=== PATIENT | male | born 1985 | race African-American/Black ===

== ENCOUNTER 2016-06-20 22:29 | Emergency (ER) | payer BC ==
[~2016-06-20] VITALS: Ht 180.3 cm; Wt 101.8 kg
[2016-06-20 23:24] LABS: HEMATOCRIT 47.4 % (38.0-50.0); MCH 27.4 PG (29.0-34.0); MCHC 32.3 G/DL (30.0-36.0); MCV 84.8 FL (86-99); MEAN PLAT.VOLUME 10.4 uM^3 (9.0-12.4); PLATELET COUNT 194 K/uL (156-360); RBC DIS.WIDTH-CV 13.1 % (11.8-14.6); RBC DIS.WIDTH-SD 40.5 % (39-53); RED BLOOD COUNT 5.59 M/uL (4.00-5.50); WHITE BLOOD COUNT 5.8 K/uL (4.1-10.2)
[2016-06-20 23:33] LABS: CHLORIDE 108 mEq/L (99-109); POTASSIUM 3.9 mEq/L (3.7-5.4); SODIUM 141 mEq/L (136-147)
[2016-06-20 23:35] LABS: GLUCOSE 102 mg/dL (70-99)
[2016-06-20 23:36] LABS: ANION GAP 9 MEQ/L (2-14)
[2016-06-20 23:37] LABS: TOTAL BILIRUBIN 0.2 mg/dL (0.0-1.0)
[2016-06-20 23:39] LABS: ALKALINE PHOSPHATASE 83 IU/L (3-129); GFR ESTIMATE (CALCULATED) > 59 mL/min/
[2016-06-20 23:40] LABS: UREA NITROGEN (BUN) 13 mg/dL (9-23)
[2016-06-20 23:42] LABS: LIPASE 46 U/L (1.0-51.0)
[2016-06-20 23:45] LABS: TROP-I INTERPRETATION NEGATIVE; TROPONIN-I < 0.01 ng/mL (0.0-0.30)
[2016-06-21] MEDS ORDERED: HYCODAN SYRUP480 ML PO (00:04)
[2016-06-21] MEDS ORDERED: VENTOLIN HFA18 GM IH (00:04)
[2016-06-21 00:17] LABS: INFLUENZA A VIRAL ANTIGEN NEGATIVE; INFLUENZA B VIRAL ANTIGEN NEGATIVE
[2016-06-21 00:59] VITALS: BP 135/91
== END 2016-06-21 01:00 | disposition home or self-care (01) ==
LOC: EME 22:29
PROVIDERS: Emergency Medicine
DX: J20.9 Acute bronchitis, unspecified (principal); R07.89 Other chest pain; Z91.040 Latex allergy status
CPT/HCPCS: 71020; 80053; 83690; 84484; 85027; 87502; 93005; 94640; 99281; 99284

== ENCOUNTER 2017-06-01 01:21 | Emergency (ER) | payer SELFPAY ==
[~2017-06-01] VITALS: Ht 180.3 cm; Wt 103.7 kg
[~2017-06-01 01:21] MED LIST: HYCODAN SYRUP480 ML PO; VENTOLIN HFA18 GM IH
[2017-06-01 02:21] LABS: HEMATOCRIT 48.9 % (38.0-50.0); HEMOGLOBIN 16.4 G/DL (12.5-16.6); MCH 28.3 PG (29.0-34.0); MCHC 33.5 G/DL (30.0-36.0); MCV 84.5 FL (86-99); PLATELET COUNT 135 K/uL (156-360); RBC DIS.WIDTH-CV 13.2 % (11.8-14.6); RBC DIS.WIDTH-SD 40.4 % (39-53); RED BLOOD COUNT 5.79 M/uL (4.00-5.50); WHITE BLOOD COUNT 5.3 K/uL (4.1-10.2)
[2017-06-01 02:39] LABS: ALBUMIN 4.1 g/dL (3.2-4.8)
[2017-06-01 02:40] LABS: CHLORIDE 106 mEq/L (99-109); POTASSIUM 3.5 mEq/L (3.7-5.4); SODIUM 140 mEq/L (136-147)
[2017-06-01 02:42] LABS: GLUCOSE 103 mg/dL (70-99); TOTAL PROTEIN 7.7 g/dL (6.4-8.3)
[2017-06-01 02:44] LABS: TOTAL BILIRUBIN 0.4 mg/dL (0.0-1.0)
[2017-06-01 02:45] LABS: ALKALINE PHOSPHATASE 82 IU/L (3-129)
[2017-06-01 02:46] LABS: CREATININE 1.2 mg/dL (0.6-1.3); GFR ESTIMATE (CALCULATED) > 59 mL/min/ (58.99-99999)
[2017-06-01 02:47] LABS: AST (GOT) 33 IU/L (2-34); UREA NITROGEN (BUN) 10 mg/dL (9-23)
[2017-06-01 02:49] LABS: ALT (GPT) 63 IU/L (3-49); LIPASE 42 U/L (1.0-51.0)
[2017-06-01 03:55] LABS: APPEARANCE CLEAR ((CLEAR)); BILIRUBIN NEGATIVE; BLOOD NEGATIVE; COLOR YELLOW ((YELLOW)); GLUCOSE (STRIP) NEGATIVE; KETONES NEGATIVE; LEUKOCYTES NEGATIVE; NITRITE NEGATIVE; PROTEIN (STRIP) NEGATIVE; SPECIFIC GRAVITY 1.015 (1.000-1.030); UCUL ADDED? NO; UROBILINOGEN 0.2 MG/DL (0.2-1.0)
[2017-06-01] MEDS ORDERED: COLACE100 MG PO (05:15)
[2017-06-01 05:26] VITALS: BP 145/93
== END 2017-06-01 05:27 | disposition home or self-care (01) ==
LOC: EME 01:21
DX: R10.11 Right upper quadrant pain (principal); K59.00 Constipation, unspecified; K76.0 Fatty (change of) liver, not elsewhere classified
CPT/HCPCS: 74177; 76705; 80053; 81003; 83690; 85027; 99281; 99285; J2270; J2405; J7030